=== PATIENT | female | born 1995 | race Hispanic/Latino ===

== ENCOUNTER 2023-09-30 15:13 | Inpatient (IN) | payer OTHER ==
[2023-09-30] MEDS ORDERED: Ondansetron PF 4 MG/2 ML Vial IVP PRN ×4 (15:42→22:55)
[2023-09-30] MEDS ORDERED: Famotidine/PF 20 mg/2ml Vial SLOW IVP PRN (15:42)
[2023-09-30] MEDS ORDERED: Tranexamic Acid 1,000 MG/10 ML VIAL IVP PRN (15:42)
[2023-09-30] MEDS ORDERED: Promethazine HCl 25 MG/ML VIAL IM PRN ×3 (15:42→22:55)
[2023-09-30] MEDS ORDERED: hydrALAZINE 20 MG/ML VIAL SLOW IVP PRN ×2 (15:42→22:55)
[2023-09-30] MEDS ORDERED: Bicitra 30 ML UDCUP PO PRN (15:42)
[2023-09-30] MEDS ORDERED: Carboprost 250 MCG/ML AMP IM PRN (15:42)
[2023-09-30] MEDS ORDERED: Methylergonovine 0.2 MG/ML VIAL IM PRN (15:42)
[2023-09-30] MEDS ORDERED: Diphenoxylate HCl/Atropine Tablet PO PRN (15:42)
[2023-09-30] MEDS ORDERED: Misoprostol 200 MCG TAB PR PRN (15:42)
[2023-09-30 15:45] VITALS: BMI 33.8
[2023-09-30] MEDS ORDERED: Lactated Ringer's 1,000 ML IV SCH (15:45)
[2023-09-30] MEDS ORDERED: CEFAZOLIN 2 GM in Sodium Chloride 0.9% 100 ML IVPB SCH (15:45)
[2023-09-30] MEDS ORDERED: Oxytocin 30 units/NS 500 ML 500 ML IV SCH (15:45)
[2023-09-30 16:19] LABS: Hemoglobin 9.9 g/dL (12.0-15.5); Mean Corpuscular HGB CONC 31.9 g/dL (32.0-36.0); Mean Corpuscular Hemoglobin 24.8 pg (27.0-33.0); Mean Corpuscular Volume 77.7 fL (81.6-98.3); Mean Platelet Volume 12.6 fL (7.4-10.4); Platelet Count 215 10x3/uL (150-450); RBC Distribution Width 14.2 % (11.5-14.5); Red Blood Cell (RBC) Count 3.99 10x6/uL (3.90-5.03); White Blood Cell (WBC) Count 10.9 10x3/uL (3.5-10.5)
[2023-09-30] MEDS ORDERED: Meperidine HCl/PF 25 MG (1 mL) VIAL SLOW IVP PRN (16:20)
[2023-09-30] MEDS ORDERED: Naloxone HCl 0.4 mg/ml Vial IV PRN (16:20)
[2023-09-30] MEDS ORDERED: Ketorolac Tromethamine 30 MG (1 mL) VIAL IVP PRN (16:20)
[2023-09-30] MEDS ORDERED: Naloxone HCl 0.4 mg/ml Vial IVP PRN ×2 (16:20)
[2023-09-30] MEDS ORDERED: fentaNYL 50 mcg/mL 1 mL Vial SLOW IVP PRN (16:20)
[2023-09-30] MEDS ORDERED: diphenhydrAMINE 50 MG/ML VIAL IVP PRN (16:20)
[2023-09-30] MEDS ORDERED: Communication Order-Pharmacy FS SCH (16:30)
[2023-09-30] MEDS ORDERED: Ketorolac Tromethamine 30 MG (1 mL) VIAL IVP SCH (16:30)
[2023-09-30 16:52] LABS: HBsAg Index 0.19 S/CO (0-0.99); Hep B Surf Ag - L&D Non-Reactive S/CO (NonReactive)
[2023-09-30 16:53] LABS: Syphilis Antibody Nonreactive (Nonreactive); Syphilis Antibody Index 0.04 S/CO (<1.00 Non-Reactive)
[2023-09-30] MEDS: fentaNYL 50 mcg/mL 1 mL Vial SLOW IVP PRN (21:41)
[2023-09-30] MEDS ORDERED: Bisacodyl 10 MG SUPP PR PRN (22:55)
[2023-09-30] MEDS ORDERED: diphenhydrAMINE 25 MG CAP PO PRN (22:55)
[2023-09-30] MEDS ORDERED: Boostrix 0.5 ML (Tdap) VIAL (>/=7 yrs of age) IM ONE (22:55)
[2023-09-30] MEDS ORDERED: HYDROcodone/Acetaminophen 5/325 mg Tablet PO PRN ×2 (22:55)
[2023-09-30] MEDS ORDERED: Lanolin Ointment 7 GM TUBE TOP PRN (22:55)
[2023-09-30] MEDS ORDERED: Meperidine HCl/PF 25 MG (1 mL) VIAL IM PRN (22:55)
[2023-10-01] MEDS: Dexamethasone 4 mg/ml Vial ONE (00:41)
[2023-10-01] MEDS: Ferrous Sulfate 325 MG TAB PO SCH ×2 (00:42→08:51)
[2023-10-01] MEDS: Docusate 100 MG CAP PO SCH ×2 (00:42→08:51)
[2023-10-01] MEDS: Ketorolac Tromethamine 30 MG (1 mL) VIAL IVP SCH (00:44)
[2023-10-01 04:19] LABS: Hematocrit 28.3 % (34.9-44.5); Hemoglobin 8.9 g/dL (12.0-15.5); Mean Corpuscular HGB CONC 31.4 g/dL (32.0-36.0); Mean Corpuscular Hemoglobin 24.6 pg (27.0-33.0); Mean Corpuscular Volume 78.2 fL (81.6-98.3); Mean Platelet Volume 12.9 fL (7.4-10.4); Platelet Count 182 10x3/uL (150-450); RBC Distribution Width 14.1 % (11.5-14.5); Red Blood Cell (RBC) Count 3.62 10x6/uL (3.90-5.03); White Blood Cell (WBC) Count 12.4 10x3/uL (3.5-10.5)
[2023-10-01] MEDS: Morphine PF 10 MG/10 ML VIAL ONE (07:26)
[2023-10-01] MEDS: fentaNYL 50 mcg/mL 1 mL Vial ONE ×3 (07:27→07:28)
[2023-10-01] MEDS: Oxytocin 10 UNITS/ML VIAL ONE (07:27)
[2023-10-01] MEDS: Ondansetron PF 4 MG/2 ML Vial ONE (07:27)
[2023-10-01] MEDS: PHENYLEPHRINE-NS 100 MCG/ML 10 ML SYRINGE ONE (07:27)
[2023-10-01] MEDS: Midazolam HCl 2 mg/2 ml Vial ONE (07:28)
[2023-10-01] MEDS: Ketorolac Tromethamine 30 MG (1 mL) VIAL ONE (07:28)
[2023-10-01] MEDS: PROPOFOL 20 ML ONE (07:28)
[2023-10-01] MEDS ORDERED: HYDROcodone/Acetaminophen 5/325 mg Tablet PO PRN (07:49)
[2023-10-01] MEDS: Prenatal Vitamin 1 TAB PO SCH (08:51)
[2023-10-01] MEDS: HYDROcodone/Acetaminophen 5/325 mg Tablet PO PRN (08:51)
[2023-10-01] MEDS: Simethicone Chewable 80 MG TAB PO PRN (08:51)
[2023-10-01] MEDS: Moisturizing Cream (Eucerin) 113 GM JAR TOP PRN (12:11)
[2023-10-01] MEDS: Ibuprofen 800 MG TAB PO SCH (21:40)
[2023-10-02] MEDS: Polyethylene Glycol 3350 17 GM Packet PO SCH ×2 (05:07→21:25)
[2023-10-03 07:52] VITALS: BP 131/72; TEMP 98.1
== END 2023-10-03 12:00 | disposition home or self-care (01) | DRG 785 ==
LOC: CSHLD 15:13 → CSHPP 22:20
PROVIDERS: ADMIT Family Medicine; ATTEND Family Medicine
PROC: 10D00Z1 Extraction of Products of Conception, Low, Open Approach (ICD-10-PCS; principal; 2023-09-30)
PROC: 0UT70ZZ Resection of Bilateral Fallopian Tubes, Open Approach (ICD-10-PCS; 2023-09-30)
PROC: 10D00Z1 Extraction of Products of Conception, Low, Open Approach (ICD-10-PCS; 2023-09-30)
PROC: 0UT20ZZ Resection of Bilateral Ovaries, Open Approach (ICD-10-PCS; 2023-09-30)
DX: O34.211 Maternal care for low transverse scar from previous cesarean delivery (principal); O99.214 Obesity complicating childbirth; E66.9 Obesity, unspecified; Z3A.39 39 weeks gestation of pregnancy; Z37.0 Single live birth; N73.6 Female pelvic peritoneal adhesions (postinfective); O26.893 Other specified pregnancy related conditions, third trimester; D50.0 Iron deficiency anemia secondary to blood loss (chronic); O90.81 Anemia of the puerperium
CPT/HCPCS: 51702; 85027; 86780; 86850; 86900; 86901; 87340; 88302; J1100; J1885; J2250; J2274; J2405; J2590; J2704; J3010